=== PATIENT | female | born 1950 | race Caucasian/White ===

== ENCOUNTER 2023-02-13 16:08 | Emergency (ER) | payer MEDICARE ==
[2023-02-13 16:20] VITALS: BP 176/68
[2023-02-13] MEDS ORDERED: cephALEXin 250 MG CAPSULE PO STA (17:22)
[2023-02-13] MEDS ORDERED: TETANUS/DIPHTHERIA/PERTUSSIS 0.5 ML SYRINGE IM ONE (17:22)
--- NOTE | 2023-02-13 17:25 | ED Physician Documentation ---
PD HPI UPPER EXT INJURY - Stated complaint Stated Complaint: L HAND LAC - Chief complaint Chief Complaint: Laceration - History obtained from History obtained from: Patient - History of Present Illness Location: Left, Finger (3rd and 4th) Type of injury: Laceration (table saw) Timing - onset: How many minutes ago (35) Timing - duration: Minutes (35) Timing - details: Abrupt onset Pain level max: 5 Pain level now: 4 Associated symptoms: No: Weakness, Numbness Contributing factors: No: Anticoagulated, Prior ortho surgery, Prosthetic joint Recently seen: Not recently seen - Additonal information Additional information: 72-year-old female presents to the emergency department for laceration to the left third and fourth digits on a table saw today. Unable to stop the bleeding at home. She does take aspirin daily but not any other anticoagulants. No numbness or tingling. Unknown last tetanus shot. Patient is right-handed. Review of Systems Constitutional: denies: Fever, Chills Neurologic: denies: Headache PD PAST MEDICAL HISTORY - Past Medical History Past Medical History: No - Past Surgical History Past Surgical History: No - Present Medications Home Medications: Ambulatory Orders Medication Instructions Recorded Confirmed Aspirin [Lee] 325 mg PO DAILY 02/13/23 cephALEXin [Keflex] 500 mg PO Q6H #28 cap 02/13/23 - Allergies Allergies/Adverse Reactions: Allergies Allergy/AdvReac Type Severity Reaction Status Date / Time Sulfa (Sulfonamide AdvReac Unknown Verified 02/13/23 16:18 Antibiotics) - Living Situation Living Situation: reports: With family - Family History Family history: reports: Non contributory - Immunizations Immunizations: TDAP >10years/unknown PD ED PE NORMAL - Vitals Vital signs reviewed: Yes - General General: Alert and oriented X 3, No acute distress - HEENT HEENT: Moist mucous membranes - Neck Neck: Supple, no meningeal sign - Cardiac Cardiac: RRR - Respiratory Respiratory: No respiratory distress, Clear bilaterally - Derm Derm: Warm and dry - Neuro Neuro: Alert and oriented X 3 - Psych Psych: Normal mood, Normal affect PD ED PE EXPANDED - Extremities CATHRYN UE/Hands Visual: 1 - laceration (flap laceraton, NVI, brisk cap refill. no tendon injury 6cm) 2 - laceration (skin avulsion 0.5cm x 5cm. NVI. no nail injury) Results - Vitals Vitals: Vital Signs - 24 hr 02/13/23 02/13/23 02/13/23 16:09 17:06 17:40 Temperature 36.9 C 36.6 C Heart Rate 83 87 Respiratory 18 20 18 Rate Blood Pressure 176/68 H O2 Saturation 98 99 Oxygen O2 Source Room air - Rads (name of study) L hand xray Relevant Findings:: Final report received, See rad report Procedures - Laceration (location) L 3rd digit Length in cm: 6 Wound type: Curved, Flap, Clean Neurovascular status: Sensory intact, Motor intact, Vascular intact Tendon involvement: Tendon intact Anesthesia: Lidocaine 1% Wound preparation: Irrigated copiously NS, Wound explored, To the base Skin layer closure: Nylon, Dermabond, Interrupted, Size #-0 - enter number (4) Other: Patient tolerated well, No complications, Neurovascular intact, Dressing applied, Tetanus booster given PD Medical Decision Making - ED course Complexity details: reviewed results, re-evaluated patient, considered differential, d/w patient ED course: 72-year-old female with laceration to the left third and fourth digits from a table saw today. Tdap given. The left third digit has a large flap laceration, this was repaired. Tolerated well. Due to concern about continued bleeding, Dermabond was also applied to this area. The laceration was repaired after application of a tourniquet. The left fourth digit is just a long skin avulsion, a tourniquet was also applied here, Dermabond was used to stop the bleeding and protect the wound. The fingers were then bandaged and placed into a splint for the next 2 to 3 days. The patient also had a ring on the left ring finger, this was removed with the ring cutter. Patient is neurovascular intact. No evidence of tendon injury. We will place on Keflex and have her follow-up closely with her doctor for a wound check and another visit for suture removal. Patient counseled regarding signs and symptoms for which I believe and urgent re-evaluation would be necessary. Patient with good understanding of and agreement to plan and is comfortable going home at this time This document was made in part using voice recognition software. While efforts are made to proofread this document, sound alike and grammatical errors may occur. Departure - Departure Disposition: 01 Home, Self Care Clinical Impression: Skin avulsion Finger laceration Qualifiers: Encounter type: initial encounter Finger: unspecified finger Damage to nail status: without damage Foreign body presence: without foreign body Laterality: left Qualified Code(s): S61.219A - Laceration without foreign body of u nspecified finger without damage to nail, initial encounter Condition: Good Instructions: ED Laceration Hand, ED Avulsion Dermal Follow-Up: Feliciats Beaulieu MD [Primary Care Provider] - () Prescriptions: cephALEXin [Keflex] 500 mg PO Q6H #28 cap Comments: Please follow-up with your doctor in about 1 week for a wound check. If things are healing appropriately, the sutures will need to be removed in about 14 days. Make sure to change the dressings daily. Do not apply any ointment as this will dissolve the glue. You can wear the finger splint for the next 2 to 3 days, especially while sleeping, this will help to prevent excessive bending of the finger which may cause rebleeding. Please take all antibiotics until gone. They were sent to [facility] in [place]. You were given a tetanus shot today as well. Return for redness, swelling or drainage from the wound. Your x-ray does not show any evidence of bony injury. Forms: PCP List Discharge Date/Time: 02/13/23 17:41
--- NOTE | 2023-02-13 17:25 | XRAY Report ---
PROCEDURE: Hand 3 View LT INDICATIONS: 3rd and 4th digits vs table saw TECHNIQUE: 3 views of the hand acquired. COMPARISON: None. FINDINGS: Bones: No acute fractures or dislocations. No suspicious bony lesions. Severe arthritic changes a t the 2nd and 3rd distal interphalangeal joints. Mild generalized osteopenia. Chronic cortical irregu larity at the tuft of the 2nd distal phalanx. Soft tissues: Skin irregularity is seen in the 3rd and 4th fingers with soft tissue edema. No radiop aque foreign body. IMPRESSION: Skin irregularity and soft tissue edema are seen in the 3rd and 4th fingers. No radiopaq ue foreign body. No acute osseous abnormality. If there is clinical concern or persistent symptoms, a dditional imaging such as repeat radiographs or advanced imaging (e.g. CT, MRI) may be helpful for fu rther evaluation. Reviewed by: Van Arguello MD on 02/13/2023 5:24 PM PDT Approved by: Van Arguello MD on 02/13/2023 5:24 PM PDT Station ID: [id number]
[2023-02-13 17:41] VITALS: O2SAT 99
== END 2023-02-13 17:41 | disposition home or self-care (01) ==
LOC: ED 16:08
DX: S61.213A Laceration without foreign body of left middle finger without damage to nail, initial encounter (principal); S61.215A Laceration without foreign body of left ring finger without damage to nail, initial encounter; W29.8XXA Contact with other powered hand tools and household machinery, initial encounter; Z23 Encounter for immunization
CPT/HCPCS: 12002; 73130; 90471; 90715; 99283; A9270